=== PATIENT | female | born 1985 | race American Indian/Alaskan Native ===

== ENCOUNTER 2016-08-31 16:46 | Emergency (ER) | payer OTHER ==
[2016-08-31 16:51] VITALS: BP 119/79; PULSE 75; TEMP 98; BMI 26.4
--- NOTE | 2016-08-31 17:46 | PDOC ---
[id number] No Limitations - History of Present Illness Initial Comments: 08/31/16 17:52 The patient is a 30 year old female with no significant past medical history who presents to the emergency department with abdominal pain for the last 4 days. Her pain is getting progressively worse. The pain is localized to the epigastric region and it does not radiate. The patient describes the pain as constant and cramping in nature. She reports associated nausea that is constant and 2 episodes of vomiting a few days ago, non bloody. The patient denies any associated diarrhea or constipation. She states the pain is worse about 30 minutes after eating. The patient denies any dysuria, hematuria, or frequency. The patient tried taking Advil and [id number] antacid with on relief of her symtpoms. She denies recent illness, fevers, or chills. She denies any recent travel or antibiotic use. <Neyda Cano - Last Filed: 08/31/16 17:52> <Da Huerta - Last Filed: 09/30/16 09:43> - General Chief Complaint: Pain Stated Complaint: STOMACH PAIN Past History <Neyda Cano - Last Filed: 08/31/16 17:52> - Past Medical History Asthma: No Cancer: No Cardiac Disorders: No Diabetes: No HTN: No Seizures: No Thyroid Disease: No - Reproductive History (#): 1 Para: 1 - Immunization History Td Vaccination: No Immunization Up to Date: No - Psycho/Social/Smoking Cessation Hx Anxiety: No Suicidal Ideation: No Smoking Status: No Smoking History: Never smoked Have you smoked in the past 12 months: No Number of Cigarettes Smoked Daily: 0 Hx Alcohol Use: No Drug/Substance Use Hx: No Substance Use Type: None Hx Substance Use Treatment: No <Da Huerta - Last Filed: 09/30/16 09:43> - Past Medical History Allergies/Adverse Reactions: Allergies Allergy/AdvReac Type Severity Reaction Status Date / Time amoxicillin Allergy Verified 08/31/16 16:51 Home Medications: Ambulatory Orders Naproxen [Naprosyn -] 500 mg PO BID #30 tablet 08/31/16 [place]-3 Fatty Acids [[place]-3] 1,000 mg PO DAILY 08/31/16 Pantoprazole Sodium [Protonix] 40 mg PO DAILY #30 tablet. 02/01/17 Review of Systems - Review of Systems Able to Perform ROS?: Yes Comments:: 08/31/16 17:50 GENERAL/CONSTITUTIONAL: No fever or chills. No weakness. HEAD, EYES, EARS, NOSE AND THROAT: No change in vision. No ear pain or discharge. No sore throat. CARDIOVASCULAR: No chest pain or shortness of breath. RESPIRATORY: No cough, wheezing, or hemoptysis. GASTROINTESTINAL: +Nausea, +vomiting. No diarrhea or constipation. GENITOURINARY: No dysuria, frequency, or change in urination. MUSCULOSKELETAL: No joint or muscle swelling or pain. No neck or back pain. SKIN: No rash NEUROLOGIC: No headache, vertigo, loss of consciousness, or change in strength/ sensation. ENDOCRINE: No increased thirst. No abnormal weight change. HEMATOLOGIC/LYMPHATIC: No anemia, easy bleeding, or history of blood clots. ALLERGIC/IMMUNOLOGIC: No hives or skin allergy. <Neyda Cano - Last Filed: 08/31/16 17:52> *Physical Exam - Vital Signs Last Vital Signs Temp Pulse Resp BP Pulse Ox 98.0 F 75 20 119/79 100 08/31/16 16:48 08/31/16 16:48 08/31/16 16:48 08/31/16 16:48 08/31/16 16:48 - Physical Exam Comments: 08/31/16 17:51 GENERAL: Awake, alert, and fully oriented, in no acute distress HEAD: No signs of trauma EYES: PERRLA, EOMI, sclera anicteric, conjunctiva clear ENT: Auricles normal inspection, hearing grossly normal, nares patent, oropharynx clear without exudates. Moist mucosa NECK: Normal ROM, supple, no lymphadenopathy, JVD, or masses LUNGS: Breath sounds equal, clear to auscultation bilaterally. No wheezes, and no crackles HEART: Regular rate and rhythm, normal S1 and S2, no murmurs, rubs or gallops ABDOMEN: +Epigatsric tenderness to palpation, no guarding no rebound. Soft, normoactive bowel sounds. No masses EXTREMITIES: Normal range of motion, no edema. No clubbing or cyanosis. No cords, erythema, or tenderness NEUROLOGICAL: Cranial nerves II through XII grossly intact. Normal speech, normal gait SKIN: Warm, Dry, normal turgor, no rashes or lesions noted. <Neyda Cano - Last Filed: 08/31/16 17:52> - Vital Signs Last Vital Signs Temp Pulse Resp BP Pulse Ox 98.0 F 75 20 119/79 100 08/31/16 16:48 08/31/16 16:48 08/31/16 16:48 08/31/16 16:48 08/31/16 16:48 <Da Huerta - Last Filed: 09/30/16 09:43> ED Treatment Course - LABORATORY CBC & Chemistry Diagram: 08/31/16 18:04 08/31/16 18:04 <Da Huerta - Last Filed: 09/30/16 09:43> *DC/Admit/Observation/Transfer - Attestations Scribe Attestion: 08/31/16 17:50 Documentation prepared by Neyda Cano, acting as medical records field technician for Da Huerta DO. <Neyda Cano - Last Filed: 08/31/16 17:52> - Attestations Physician Attestion: 08/31/16 17:46 I, Dr. Da Huerta, attest that this document has been prepared under my direction and personally reviewed by me in its entirety. I further attest, that it accurately reflects all work, treatment, procedures and medical decision -making performed by me. <Da Huerta - Last Filed: 09/30/16 09:43> Diagnosis at time of Disposition: Kidney stone on right side Abdominal pain Qualifiers: Abdominal location: epigastric Qualified Code(s): R10.13 - Epigastric pain - Discharge Dispostion Disposition: HOME Condition at time of disposition: Stable - Prescriptions Prescriptions: Naproxen [Naprosyn -] 500 mg PO BID #30 tablet Pantoprazole Sodium [Protonix] 40 mg PO DAILY #30 tablet.dr - Referrals Referrals: Celso Sharp MD [Staff Physician] - Gerardo Carlton MD [Staff Physician] - Kimberly Mcmullen MD [Primary Care Provider] - - Patient Instructions Printed Discharge Instructions: DI for Kidney Stones, DI for Abdominal Pain- Adult
[2016-08-31] MEDS ORDERED: ONDANSETRON 4 MG/2 ML VIAL IVPUSH ONE (17:50)
[2016-08-31] MEDS ORDERED: morphine CARPU-JECT 4 MG/1 ML DISP.SYRIN IVPUSH ONE (17:50)
[2016-08-31] MEDS ORDERED: SODIUM CHLORIDE 1,000 ML IV STA (17:50)
[2016-08-31 18:18] LABS: URINE APPEARANCE CLEAR; URINE BILIRUBIN NEGATIVE (NEGATIVE); URINE BLOOD NEGATIVE (NEGATIVE); URINE COLOR LTYELLOW; URINE GLUCOSE (UA) NEGATIVE (NEGATIVE); URINE KETONE NEGATIVE (NEGATIVE); URINE LEUK ESTERASE NEGATIVE (NEGATIVE); URINE NITRITE NEGATIVE (NEGATIVE); URINE PROTEIN NEGATIVE (NEGATIVE); URINE UROBILINOGEN NEGATIVE E.U./dl (0.2-1.0)
[2016-08-31] MEDS ORDERED: morphine CARPU-JECT 4 MG/1 ML DISP.SYRIN ONE (18:27)
[2016-08-31] MEDS ORDERED: ONDANSETRON 4 MG/2 ML VIAL ONE (18:27)
[2016-08-31 18:36] LABS: BASOPHIL 0.6 % (0-2.0); EOSINOPHIL 2.6 % (0-4.5); MCH 29.9 pg (25.7-33.7); MCHC 33.8 g/dl (32.0-36.0); MEAN CELL VOLUME 88.7 fl (80-96); MEAN PLT VOLUME 8.5 fl (7.5-11.1); PLATELET COUNT 233 K/MM3 (134-434); RDW 12.7 % (11.6-15.6); WHITE BLOOD COUNT 6.7 K/mm3 (4.0-10.0)
[2016-08-31 19:07] LABS: ALK PHOS 132 U/L (45-117); ANION GAP 8 (8-16); BILIRUBIN,TOTAL 0.1 mg/dL (0.2-1.0); CALCIUM 9.4 mg/dL (8.5-10.1); CO2 25 mmol/L (21-32); CREATININE 0.6 mg/dL (0.55-1.02); GLUCOSE,RANDOM 88 mg/dL (74-106); SGOT/AST 18 U/L (15-37); SGPT/ALT 24 U/L (12-78); TOT PROT 7.7 g/dl (6.4-8.2)
[2016-08-31 19:25] LABS: INR 1.01 (0.82-1.09); PROTHROMBIN TIME (PATIENT) 11.1 SEC (9.98-11.88)
--- NOTE | 2016-08-31 19:57 | PDOC ---
*Physical Exam - Vital Signs Last Vital Signs Temp Pulse Resp BP Pulse Ox 98.0 F 75 20 119/79 100 08/31/16 16:48 08/31/16 16:48 08/31/16 16:48 08/31/16 16:48 08/31/16 16:48 ED Treatment Course - LABORATORY CBC & Chemistry Diagram: 08/31/16 18:04 08/31/16 18:04 - ADDITIONAL ORDERS Additional order review: Laboratory Results 08/31/16 08/31/16 08/31/16 18:04 18:04 18:00 INR 1.01 Sodium 137 Potassium 4.6 Chloride 104 Carbon Dioxide 25 Anion Gap 8 BUN 13 Creatinine 0.6 D Creat Clearance w eGFR > 60 Random Glucose 88 Calcium 9.4 Total Bilirubin 0.1 L AST 18 ALT 24 Alkaline Phosphatase 132 H D Total Protein 7.7 Albumin 4.0 Lipase 106 Urine Color Ltyellow Urine Appearance Clear Urine pH 7.0 D Ur Specific [place] 1.019 Urine Protein Negative Urine Glucose (UA) Negative Urine Ketones Negative Urine Blood Negative Urine Nitrite Negative Urine Bilirubin Negative Urine Urobilinogen Negative Ur Leukocyte Esterase Negative Urine HCG, Qual Negative 08/31/16 18:04 RBC 4.67 MCV 88.7 MCHC 33.8 RDW 12.7 MPV 8.5 Neutrophils % 54.0 Lymphocytes % 30.9 Monocytes % 11.9 H Eosinophils % 2.6 Basophils % 0.6 - Medications Given in the ED: ED Medications Discontinued Medications Generic Name Dose Route Start Last Admin Trade Name Freq PRN Reason Stop Dose Admin Sodium Chloride 1,000 mls @ 1,000 mls/hr 08/31/16 17:50 08/31/16 18:43 Normal Saline - IV 08/31/16 18:49 1,000 mls/hr ASDIR STA Administration Morphine Sulfate 4 mg 08/31/16 17:50 08/31/16 18:43 Morphine Injection - IVPUSH 08/31/16 17:51 4 mg ONCE ONE Administration Ondansetron HCl 4 mg 08/31/16 17:50 08/31/16 18:43 Zofran Injection IVPUSH 08/31/16 17:51 4 mg ONCE ONE Administration *DC/Admit/Observation/Transfer Diagnosis at time of Disposition: Calculus of right kidney Abdominal pain Qualifiers: Abdominal location: epigastric Qualified Code(s): R10.13 - Epigastric pain - Discharge Dispostion Disposition: HOME Condition at time of disposition: Stable Admit: No - Prescriptions Prescriptions: Pantoprazole Sodium [Protonix] 40 mg PO DAILY #30 tablet.dr - Referrals Referrals: Celso Sharp MD [Staff Physician] - Kimberly Mcmullen MD [Primary Care Provider] - Gerardo Carlton MD [Staff Physician] - - Patient Instructions Printed Discharge Instructions: DI for Abdominal Pain-Adult, DI for Kidney Stones - Post Discharge Activity
== END 2016-08-31 20:27 | disposition home or self-care (01) ==
LOC: JER 16:46
PROC: 3E033NZ Introduction of Analgesics, Hypnotics, Sedatives into Peripheral Vein, Percutaneous Approach (ICD-10-PCS; principal; 2016-08-31)
PROC: 3E033GC Introduction of Other Therapeutic Substance into Peripheral Vein, Percutaneous Approach (ICD-10-PCS; 2016-08-31)
PROC: 3E0337Z Introduction of Electrolytic and Water Balance Substance into Peripheral Vein, Percutaneous Approach (ICD-10-PCS; 2016-08-31)
DX: R10.13 Epigastric pain (principal)
CPT/HCPCS: 36415; 76705-TC; 80053; 81003; 83690; 84703; 85025; 85610; 87086; 96361; 96374; 96375; 99282-25

== ENCOUNTER 2017-03-21 06:12 | Emergency (ER) | payer OTHER ==
[2017-03-21 06:33] VITALS: BP 120/78; PULSE 72; TEMP 98.2; BMI 23.6
--- NOTE | 2017-03-21 06:42 | PDOC ---
*Physical Exam - Vital Signs Last Vital Signs Temp Pulse Resp BP Pulse Ox 98.2 F 72 18 120/78 98 03/21/17 06:30 03/21/17 06:30 03/21/17 06:30 03/21/17 06:30 03/21/17 06:30 Medical Decision Making - Medical Decision Making 03/21/17 06:42 agree with care from [facility] [place] *DC/Admit/Observation/Transfer Diagnosis at time of Disposition: Foreign body in ear - Discharge Dispostion Disposition: HOME - Referrals Referrals: Chaparrita Taylor MD [Primary Care Provider] - - Patient Instructions Printed Discharge Instructions: DI for Removal of Foreign Body From Ear Additional Instructions: Follow up wit your doctor as needed. Return if any concerns for further evaluation. Print Language: UZBEK
[2017-03-21] MEDS ORDERED: IBUPROFEN 600 MG TABLET (FP) PO ONE ×2 (06:46→06:49)
--- NOTE | 2017-03-21 06:47 | PDOC ---
History of Present Illness - General Chief Complaint: Foreign Body (FB) Stated Complaint: FOREIGN BODY/RT EAR Time Seen by Provider: 03/21/17 06:36 History Source: Patient Exam Limitations: No Limitations - History of Present Illness Initial Comments: 03/21/17 06:42 31yo female patient with no past medical history presents to ED c/o insect in right ear. Patient states while sleeping she felt bug crawl into her ear around 545am this morning. She denies any other complaints at this time. Timing/Duration: getting worse Severity: moderate Modifying Factors: worse with: cold therapy, eating, immobilization, medication , movement, rest, other Associated Symptoms: denies: denies symptoms, chest pain, cough, diaphoresis, fever/chills, headaches, loss of appetite, malaise, nausea/vomiting, rash, seizure, shortness of breath, syncope, weakness, other Aspirin Received prior to arrival: No: no aspirin today, unknown, 81 mg x 1, 81 mg x 2, 81 mg x 3, 81 mg x 4, 325 mg x 1, provided at home, provided by EMS, provided by ED [facility] Contraindications(Core Measure): No: Allergy, Other, Active Blding w/i 24 hrs., Plavix, Receiving Warfarin Beta Angela Contraindications(Core Measure): No: Not Prescribed, Allergy, Bradycardia (HR <60bpm), Advanced Heart Block, Pacemaker, Other Past History - Travel Traveled outside of the country in the last 30 days: No Close contact w/someone who was outside of country & ill: No - Past Medical History Allergies/Adverse Reactions: Allergies Allergy/AdvReac Type Severity Reaction Status Date / Time amoxicillin Allergy Verified 03/21/17 06:32 Home Medications: Ambulatory Orders Cholecalciferol (Vitamin D3) [Vitamin D3 -] 1,000 unit PO DAILY 03/21/17 Asthma: No Cancer: No Cardiac Disorders: No Diabetes: No HTN: No Seizures: No Thyroid Disease: No - Reproductive History (#): 1 Para: 1 - Immunization History Td Vaccination: No Immunization Up to Date: Yes - Psycho/Social/Smoking Cessation Hx Anxiety: No Suicidal Ideation: No Smoking Status: No Smoking History: Never smoked Have you smoked in the past 12 months: No Number of Cigarettes Smoked Daily: 0 Hx Alcohol Use: No Drug/Substance Use Hx: No Substance Use Type: None Hx Substance Use Treatment: No Review of Systems - Review of Systems Able to Perform ROS?: Yes Is the patient limited Solomon Islander proficient: No HEENTM: Yes: Ear Pain All Other Systems: Reviewed and Negative *Physical Exam - Vital Signs Last Vital Signs Temp Pulse Resp BP Pulse Ox 98.2 F 72 18 120/78 98 03/21/17 06:30 03/21/17 06:30 03/21/17 06:30 03/21/17 06:30 03/21/17 06:30 - Physical Exam General Appearance: Yes: Nourished, Appropriately Dressed, Apparent Distress, Moderate Distress. No: Mild Distress, Severe Distress HEENT: positive: EOMI, ARRON, Normal ENT Inspection, Normal Voice, Symmetrical, TMs Normal, Pharynx Normal, Other (Insect (suarez) noted in right ear- removed with alligator forceps. No perforation, erythema, bulging noted to TM.). negative: TM Bulging, TM Dull, TM Erythema Neck: positive: Trachea midline, Normal Thyroid, Supple. negative: Decreased range of motion, Stridor, Lymphadenopathy (R), Lymphadenopathy (L), Tender lateral, Tender midline Respiratory/Chest: positive: Lungs Clear, Normal Breath Sounds. negative: Chest Tender, Respiratory Distress, Accessory Muscle Use, Labored Respiration, Rapid RR, Stridor, Wheezing Cardiovascular: positive: Regular Rhythm, Regular Rate Musculoskeletal: positive: Normal Inspection. negative: CVA Tenderness Extremity: positive: Normal Capillary Refill, Normal Inspection, Normal Range of Motion. negative: Pedal Edema, Swelling, Calf Tenderness, Erythema, Inflammation Integumentary: positive: Normal Color, Dry, Warm Neurologic: positive: roller print tender II-XII NML intact, Fully Oriented, Alert, Normal Mood/ Affect, Normal Response, Motor Strength 5/5 *DC/Admit/Observation/Transfer Diagnosis at time of Disposition: Foreign body of ear, right Qualifiers: Encounter type: initial encounter Qualified Code(s): T16.1XXA - Foreign body in right ear, initial encounter - Discharge Dispostion Disposition: HOME Condition at time of disposition: Improved Admit: No - Patient Instructions Printed Discharge Instructions: DI for Removal of Foreign Body From Ear Additional Instructions: Follow up wit your doctor as needed. Return if any concerns for further evaluation. Print Language: GREENLANDIC
== END 2017-03-21 06:55 | disposition home or self-care (01) ==
LOC: JER 06:12
PROC: 09C37ZZ Extirpation of Matter from Right External Auditory Canal, Via Natural or Artificial Opening (ICD-10-PCS; principal; 2017-03-21)
DX: T16.1XXA Foreign body in right ear, initial encounter (principal); X58.XXXA Exposure to other specified factors, initial encounter; Y93.84 Activity, sleeping; Y92.032 Bedroom in apartment as the place of occurrence of the external cause
CPT/HCPCS: 69200-25; 99282-25

== ENCOUNTER 2017-07-10 15:36 | Emergency (ER) | payer OTHER ==
[2017-07-10] MEDS ORDERED: ACETAMINOPHEN 325 MG TABLET (FP) PO ONE (15:42)
[2017-07-10 15:43] VITALS: BP 118/84; PULSE 75; TEMP 97.9; BMI 26.4
--- NOTE | 2017-07-10 15:44 | PDOC ---
Rapid Medical Evaluation Time Seen by Provider: 07/10/17 15:40 Medical Evaluation: Allergies Allergy/AdvReac Type Severity Reaction Status Date / Time amoxicillin Allergy Verified 07/10/17 15:39 07/10/17 15:40 The patient presents with a chief complaint of: L arm pain after blood draw. Pt. reports swelling to the arm, never had pain like this after a blood draw. I have performed a brief in-person evaluation of this patient; Pertinent physical exam findings: L arm TTP above antecubital fossa where blood work was drawn I have ordered the following: Tylenol, Upper extremity US The patient will proceed to the ED for further evaluation.
--- NOTE | 2017-07-10 17:01 | PDOC ---
History of Present Illness - General Chief Complaint: Pain Stated Complaint: RT ARM PAIN (PCP SENT) Time Seen by Provider: 07/10/17 15:40 History Source: Patient Exam Limitations: No Limitations - History of Present Illness Initial Comments: 07/10/17 16:52 31 yr female with c/o left upper arm pain after having blood drawn today. Pt had pain to the inner AC area, now radiates to her bicep, no redness, no warmth. Occurred: reports: this morning Severity: reports: mild Upper Extremity Pain Location: left: arm Past History - Past Medical History Allergies/Adverse Reactions: Allergies Allergy/AdvReac Type Severity Reaction Status Date / Time amoxicillin Allergy Verified 07/10/17 15:39 Home Medications: Ambulatory Orders Cholecalciferol (Vitamin D3) [Vitamin D3 -] 1,000 unit PO DAILY 03/21/17 Asthma: No Cancer: No Cardiac Disorders: No COPD: No Diabetes: No HTN: No Seizures: No Thyroid Disease: No - Reproductive History (#): 1 Para: 1 - Immunization History Td Vaccination: No Immunization Up to Date: Yes - Suicide/Smoking/Psychosocial Hx Smoking Status: No Smoking History: Never smoked Have you smoked in the past 12 months: No Number of Cigarettes Smoked Daily: 0 Information on smoking cessation initiated: No Hx Alcohol Use: No Drug/Substance Use Hx: No Substance Use Type: None Hx Substance Use Treatment: No Review of Systems - Review of Systems Able to Perform ROS?: Yes Is the patient limited Nepali proficient: No Constitutional: No: Symptoms Reported HEENTM: No: Symptoms Reported Respiratory: No: Symptoms reported Cardiac (ROS): No: Symptoms Reported ABD/GI: No: Symptoms Reported : No: Symptoms Reported Musculoskeletal: No: Symptoms Reported Integumentary: Yes: Symptoms Reported Neurological: No: Symptoms reported *Physical Exam - Vital Signs Last Vital Signs Temp Pulse Resp BP Pulse Ox 97.9 F 75 18 118/84 100 07/10/17 15:41 07/10/17 15:41 07/10/17 15:41 07/10/17 15:41 07/10/17 15:41 - Physical Exam General Appearance: Yes: Nourished HEENT: positive: EOMI, ARRON Gastrointestinal/Abdominal: positive: Normal Bowel Sounds, Soft Musculoskeletal: positive: Normal Inspection Extremity: positive: Normal Capillary Refill, Normal Inspection, Normal Range of Motion, Tender (left bicep , left AC, no swelling no bruising no redness) Integumentary: positive: Normal Color, Dry, Warm. negative: Erythema, Rash, Bruising Neurologic: positive: Fully Oriented, Alert, Normal Mood/Affect, Normal Response , Motor Strength 12/02 ED Treatment Course - Medications Given in the ED: ED Medications Discontinued Medications Generic Name Dose Route Start Last Admin Trade Name George PRN Reason Stop Dose Admin Acetaminophen 650 mg 07/10/17 15:42 07/10/17 15:43 Tylenol - PO 07/10/17 15:43 650 mg ONCE ONE Administration Medical Decision Making - Medical Decision Making 07/10/17 17:01 cc: left arm pain after having venopuncture down at an outside lab pt sent to have US by her PMD pt has no medical history arm is without redness or swelling, has pain to touch to the left upper arm. US ordered in RME negative duplex *DC/Admit/Observation/Transfer Diagnosis at time of Disposition: Arm pain Qualifiers: Laterality: left Qualified Code(s): M79.602 - Pain in left arm - Discharge Dispostion Disposition: HOME Condition at time of disposition: Good - Referrals Referrals: Deneen Young MD [Primary Care Provider] - - Patient Instructions Additional Instructions: apply warm compresses to area of pain every 2hrs for 20 minutes take ibuprofen as directed for pain 600mg every 6hrs (over the counter motrin, advil or ibuprofen) follow with your doctor if any symptoms worsen or persist - Post Discharge Activity
== END 2017-07-10 17:18 | disposition home or self-care (01) ==
LOC: JERFT 15:36
DX: M79.602 Pain in left arm (principal)
CPT/HCPCS: 93971; 99281-25

== ENCOUNTER 2017-09-17 14:57 | Emergency (ER) | payer OTHER ==
[2017-09-17 15:19] VITALS: BP 108/72; PULSE 79; TEMP 98.7; BMI 30.2
--- NOTE | 2017-09-17 17:26 | PDOC ---
History of Present Illness - General Chief Complaint: Cold Symptoms Stated Complaint: FEVER, SORE THROAT Time Seen by Provider: 09/17/17 16:50 History Source: Patient Exam Limitations: No Limitations - History of Present Illness Initial Comments: 09/17/17 17:23 Here with daughter, both complaints of moist cough, fevers greater than 101, earache and sore throat pain, runny nose, and generalized body aches 2 days ago. Timing/Duration: reports: getting worse Severity: reports: mild, moderate Associated Symptoms: reports: denies symptoms, cough, facial pain, fever/chills , headache, nasal congestion, nasal drainage, sore throat Past History - Travel Traveled outside of the country in the last 30 days: No Close contact w/someone who was outside of country & ill: No - Past Medical History Allergies/Adverse Reactions: Allergies Allergy/AdvReac Type Severity Reaction Status Date / Time amoxicillin Allergy Verified 09/17/17 15:16 Home Medications: Ambulatory Orders Cholecalciferol (Vitamin D3) [Vitamin D3 -] 1,000 unit PO DAILY 03/21/17 Oseltamivir Phosphate [Tamiflu -] 75 mg PO BID #10 capsule 09/17/17 Asthma: No Cancer: No Cardiac Disorders: No COPD: No Diabetes: No HTN: No Seizures: No Thyroid Disease: No Other medical history: DENIES - Reproductive History (#): 1 Para: 1 - Immunization History Td Vaccination: No Immunization Up to Date: Yes - Suicide/Smoking/Psychosocial Hx Smoking Status: No Smoking History: Never smoked Have you smoked in the past 12 months: No Number of Cigarettes Smoked Daily: 0 Hx Alcohol Use: No Drug/Substance Use Hx: No Substance Use Type: None Hx Substance Use Treatment: No Review of Systems - Review of Systems Able to Perform ROS?: Yes Is the patient limited Frisian proficient: Yes Constitutional: Yes: Symptoms Reported, See HPI, Loss of Appetite, Malaise HEENTM: No: Symptoms Reported Respiratory: Yes: Symptoms reported, See HPI, Cough. No: Shortness of Breath, Wheezing Musculoskeletal: Yes: Symptoms Reported Neurological: Yes: Symptoms reported All Other Systems: Reviewed and Negative *Physical Exam - Vital Signs Last Vital Signs Temp Pulse Resp BP Pulse Ox 98.7 F 79 19 108/72 97 09/17/17 15:16 09/17/17 15:16 09/17/17 15:16 09/17/17 15:16 09/17/17 15:16 - Physical Exam Comments: 09/17/17 17:24 GENERAL: [The child is awake, alert, and appropriately interactive.] EYES: [The pupils are equal, round, and reactive to light, with clear, conjunctiva.but glassy] NOSE: [The nose with clear drainage EARS: [The ear canals and tympanic membranes are congested but landmarks easily visualed ] THROAT: [The oropharynx is clear with erythema, no exudates. The mucous membranes are moist.] NECK: [The neck is supple with mildly tender adenopathy, no menigemous] CHEST: [The lungs are coarse but clear without crackles, or wheezes.] HEART: [Heart is regular rhythm, with normal S1 and S2, no murmurs.] ABDOMEN: [The abdomen is soft and nontender with normal bowel sounds. There is no organomegaly and no mass. There is no guarding or rebound.] EXTREMITIES: [Extremities are normal.] NEURO: [Behavior is normal for age.cranky but easily,m Tone is normal.] SKIN: [Skin is unremarkable without rash or swelling. There is no bruising, and there are no other signs of injury.] General Appearance: Yes: Nourished, Appropriately Dressed, Apparent Distress Progress Note - Progress Note Progress Note: Upper respiratory infection, all of family ill and daughter here with same. We' ll treat for influenza as within window for Tamiflu treatment *DC/Admit/Observation/Transfer Diagnosis at time of Disposition: Influenzal acute upper respiratory infection - Discharge Dispostion Disposition: HOME Condition at time of disposition: Stable Admit: No - Prescriptions Prescriptions: Oseltamivir Phosphate [Tamiflu -] 75 mg PO BID #10 capsule - Referrals - Patient Instructions Printed Discharge Instructions: DI for Viral Upper Respiratory Infection -- Adult Additional Instructions: Rest, drink lots of fluids: Teas, water, soups, Pedialyte Saltwater gargles Steamy showers/seem to face break up mucus Old-fashioned treatments help! Avoid contact with others until fevers and cough resolved as this is very contagious Lots of handwashing and good hygiene Continue [id number] medications for symptomatic relief Tylenol or Motrin for fever and pain Take all of Tamiflu as directed: 1 tab every 12 hours for 5 days Followup with private physician in one to 2 days as needed or if worsening Return to emergency department for worsened symptoms, fevers, dehydration Influenza takes between 5 and 7 days for resolution To not participate in any activity, work, or school until fevers and cough are gone for at least one day - Post Discharge Activity Forms/Work/School Notes: Back to Work
== END 2017-09-17 17:34 | disposition home or self-care (01) ==
LOC: JERFT 14:57
DX: J11.1 Influenza due to unidentified influenza virus with other respiratory manifestations (principal)
CPT/HCPCS: 99281-25

== ENCOUNTER 2018-09-10 08:26 | Emergency (ER) | payer OTHER ==
[2018-09-10 08:34] VITALS: BP 111/76; PULSE 76; TEMP 98.1
[2018-09-10] MEDS ORDERED: IBUPROFEN 400 MG TABLET (FP) PO ONE ×2 (09:10→09:17)
[2018-09-10] MEDS ORDERED: ALBUTEROL SO4 2.5/IPRATROPIUM 0.5 INH SOL 3 ML VIAL.NEB. NEB ONE ×2 (09:10→09:17)
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
== END 2018-09-10 10:30 | disposition home or self-care (01) ==
LOC: JERFT 08:26
PROC: 3E0F7GC Introduction of Other Therapeutic Substance into Respiratory Tract, Via Natural or Artificial Opening (ICD-10-PCS; principal; 2018-09-10)
DX: J00 Acute nasopharyngitis [common cold] (principal); M62.830 Muscle spasm of back
CPT/HCPCS: 87804; 94640; 99281-25

== ENCOUNTER 2018-09-16 17:20 | Emergency (ER) | payer OTHER ==
[2018-09-16 17:29] VITALS: BMI 27.9
[2018-09-16] MEDS ORDERED: ACETAMINOPHEN 325 MG TABLET (FP) PO ONE (18:16)
--- NOTE | 2018-09-16 18:41 | PDOC ---
History of Present Illness - General Chief Complaint: Respiratory Stated Complaint: FEVER Time Seen by Provider: 09/16/18 17:50 History Source: Patient Exam Limitations: No Limitations Past History - Past Medical History Allergies/Adverse Reactions: Allergies Allergy/AdvReac Type Severity Reaction Status Date / Time amoxicillin Allergy Verified 09/16/18 17:25 Home Medications: Ambulatory Orders NK [No Known Home Medication] 09/16/18 Asthma: No Cancer: No Cardiac Disorders: No COPD: No Diabetes: No HTN: No Seizures: No Thyroid Disease: No - Reproductive History (#): 1 Para: 1 - Immunization History Td Vaccination: No Immunization Up to Date: Yes - Suicide/Smoking/Psychosocial Hx Smoking Status: No Smoking History: Never smoked Have you smoked in the past 12 months: No Number of Cigarettes Smoked Daily: 0 Hx Alcohol Use: No Drug/Substance Use Hx: No Substance Use Type: None Hx Substance Use Treatment: No *Physical Exam - Vital Signs Last Vital Signs Temp Pulse Resp BP Pulse Ox 100.7 F H 125 H 22 H 104/68 98 09/16/18 17:27 09/16/18 17:27 09/16/18 17:27 09/16/18 17:27 09/16/18 17:27 - Physical Exam General Appearance: No: Apparent Distress HEENT: positive: Normal Voice, Pharynx Normal, Nasal Congestion (mild), Sinus Tenderness (mild frontal sinus tenderness). negative: Muffled/Hoarse voice, Pharyngeal Erythema, Tonsillar Exudate, Rhinorrhea Respiratory/Chest: positive: Lungs Clear, Normal Breath Sounds. negative: Respiratory Distress Cardiovascular: positive: Regular Rhythm, Tachycardia Gastrointestinal/Abdominal: positive: Normal Bowel Sounds, Soft. negative: Tender, Distended, Guarding, Rebound Musculoskeletal: negative: Normal Inspection Integumentary: positive: Normal Color Neurologic: positive: Alert, Normal Mood/Affect Moderate Sedation - Procedure Monitoring Vital Signs: Procedure Monitoring Vital Signs Temperature 100.7 F H 09/16/18 17:27 Pulse Rate 125 H 09/16/18 17:27 Respiratory Rate 22 H 09/16/18 17:27 Blood Pressure 104/68 09/16/18 17:27 O2 Sat by Pulse Oximetry (%) 98 09/16/18 17:27 Medical Decision Making - Medical Decision Making 32 y/o F hx of lumbar spinal surgery, migraines presents with URI sxs x 9 days. Mentions sxs started with rhinorrhea, watery eyes and some nasal congestion. Then mentions having some dry cough x 4 days along with OSEGUERA and lightheadedness. Today, noted having fever, body aches, watery diarrhea. Patient was seen in ED and was tested negative for flu. She was seen by her PCP last week who advised her to go to [place] to get EKG and CXR. She went to [place] on 09/13 and was tested negative for flu again, but states no EKG or CXR was done. Denies sore throat, ear pain, n/v, abdominal pain. Likely viral syndrome Given fever and body aches started today, will recheck for flu EKG shows sinus tachycardia at 111 likely due to fever Will get CXR to r/o PNA Patient otherwise appears well - given PO fluids, Tylenol 09/16/18 18:37 Wet read of CXR: Negative 09/16/18 18:48 Flu negative Will repeat vitals; if normal, likely d/c Will sign out to incoming RUTHIE 09/16/18 18:55 *DC/Admit/Observation/Transfer Diagnosis at time of Disposition: Viral URI with cough - Discharge Dispostion Disposition: HOME Condition at time of disposition: Stable Decision to Admit order: No - Referrals Referrals: Deneen Young MD [Primary Care Provider] - 2 Days - Patient Instructions Printed Discharge Instructions: DI for Viral Upper Respiratory Infection -- Adult Additional Instructions: Thank you for choosing [facility]. It was a pleasure taking care of you. Likely you have viral infection. You may take Tylenol or Motrin as needed for fever Drink at least 2 L of water daily Follow-up with your PCP in 2-3 days. Return to the Emergency Department if your symptoms worsen or persist or have other concerning symptoms. - Post Discharge Activity
[2018-09-16] MEDS ORDERED: ACETAMINOPHEN 325 MG TABLET (FP) ONE (18:46)
[2018-09-16 20:46] VITALS: BP 112/70; PULSE 99; TEMP 98.7
--- NOTE | 2018-09-17 12:12 | EKG ---
Test Reason : Blood Pressure : / mmHG Vent. Rate : 111 BPM Atrial Rate : 111 BPM P-R Int : 140 ms QRS Dur : 086 ms QT Int : 316 ms P-R-T Axes : 052 059 047 degrees QTc Int : 429 ms SINUS TACHYCARDIA OTHERWISE NORMAL ECG WHEN COMPARED WITH ECG OF 14-AUG-2010 20:31, NO SIGNIFICANT CHANGE WAS FOUND Confirmed by RAUDEL DELGADILLO MD ([id number]) on 09/17/2018 12:11:57 PM Referred By: Confirmed By:RAUDEL DELGADILLO MD
== END 2018-09-16 20:47 | disposition home or self-care (01) ==
LOC: JER 17:20
DX: J06.9 Acute upper respiratory infection, unspecified (principal); B97.89 Other viral agents as the cause of diseases classified elsewhere
CPT/HCPCS: 71046-TC-FY; 87804; 93005; 93010; 99282-25